=== PATIENT | female | born 1965 | race Caucasian/White ===

== ENCOUNTER → 2024-05-31 12:26 | Outpatient (BNVA) | payer OTHER, SELFPAY | PROVIDERS: Family Provider Electrodiagnostic Medicine; PCP Electrodiagnostic Medicine; Visit Provider Internal Medicine Cardiovascular Disease | DX: R07.9 Chest pain, unspecified (principal) | CPT/HCPCS: 93005 ==

== ENCOUNTER 2024-06-12 11:07 | Outpatient (CLI) | payer OTHER, SELFPAY ==
--- NOTE | 2024-06-12 11:30 | USCV_ITS ---
Jazmin Bowie Age: 59 Gender: F : 1965 Exam Date: 06/12/2024 11:27 Ordering Phys: Fernando Kauffman MD ([email or web address]) Technologist: NICKO [place]am Location[place] [facility] [place] Indication: bruit Risk Factors: Previous Vascular Surgery: Right Brachial BP: / Left Brachial BP: / Right Left Velocity (cm/s) Spectral Plaque Velocity (cm/s) Spectral Plaque Syst/Diast Broadening Syst/Diast Broadening 84.10/ 28.40 Prox CCA 73.30 / 24.90 85.40/ 28.40 Mid CCA 103.60/ 36.40 90.40/ 34.80 Distal CCA 112.00/ 38.60 73.40/ 25.70 Prox ICA 141.10/ 35.60 49.80/ 19.70 Mid ICA 147.80/ 51.00 50.70/ 17.30 Distal ICA 85.60 / 30.00 143.80 ECA 150.00 0.80 ICA/CCA 1.30 Antegrade Vertebral Antegrade 31.00/ 11.60 cm/s 26.50/ 6.60 cm/s Tri Subclavian Tri 93.10 77.50 CONCLUSIONS Right ICA stenosis <50%. Mild atheromatous plaque right carotid bulb/ICA. Left ICA stenosis 50-69%. Moderate atheromatous plaque left carotid bulb/ICA. Normal antegrade Doppler flow noted in the right vertebral artery. Normal antegrade Doppler flow noted in the left vertebral artery. Ministerio Turner MD (Electronically Signed) Final Date: 12 June 2024 18:08 S
== END 2024-06-12 11:08 | disposition home or self-care (01) ==
LOC: RAD 11:08
PROVIDERS: PCP Family Medicine; Visit Provider Internal Medicine Cardiovascular Disease
DX: R09.89 Other specified symptoms and signs involving the circulatory and respiratory systems (principal); I65.23 Occlusion and stenosis of bilateral carotid arteries
CPT/HCPCS: 93880

== ENCOUNTER 2024-06-13 09:10 | Outpatient (CLI) | payer OTHER, SELFPAY ==
[2024-06-13 09:24] VITALS: BMI 24.7
--- NOTE | 2024-06-13 09:27 | NMCV_ITS ---
NM ann perf SPECT r/s* [id number] Jazmin Bowie Age: 59 Gender: F : 1965 Exam Date: 06/13/2024 10:28 Ordering Phys: Fernando Kauffman MD ([email or web address]) Technologist: DAYA Charles Exam Location: [facility] [place] Indications: cp STRESS TEST Please see separate stress test report in [facility] for full findings IMAGE PROTOCOL Rest/Stress 1 Exercise Day Radiopharmaceutical Dose (mCi) Administration Site Administered by Rest: Tc-99m 11 IV DAYA Shankar Sestamicarter Stress:Tc-99m 32.8 IV DAYA Charles Sestamicarter Rest: 13-Jun-2024 60 Discovery 630 Stress: 13-Jun-2024 15 Discovery 630 Radiopharmaceutical was injected at 87 % maximum heart rate. Images obtained in supine and prone position. SPECT RESULTS Technical Quality: Good Raw Data Analysis: Normal Image Corrections: No attenuation or motion correction applied Summed Stress Score: 0 Summed Rest Score: 2 Summed Difference Score: 0 PERFUSION FINDINGS SPECT images demonstrate homogeneous tracer distribution throughout the myocardium. FUNCTIONAL RESULTS (calculated via Gated SPECT) Stress Image LV EF (%): 80 Stress EDV (mL):59 TID: 0.86 Stress ESV (mL):12 FUNCTIONAL FINDINGS: There is normal left ventricular systolic function. IMPRESSIONS 1. Normal myocardial perfusion imaging with no evidence of ischemia. 2. LV systolic function is normal Curt Mcmahon MD (Electronically Signed) Final Date: 15 June 2024 16:46 S
--- NOTE | 2024-06-13 09:27 | ECG_ITS ---
[facility]: 2024-[facility]13 Pat Name: Jazmin Bowie Department: Room: Gender: Female Rn Shift Mgr: : 1965 Requested By: Fernando Kauffman Order Number: [id number] Reading MD: FERNANDO KAUFFMAN Interpretive Statements Lung unchanged pre/post procedure; Intraprocedure shortess of breath; Symptoms resoled by discharge EXERCISE DATA: The patient was exercised by Raymond protocol. Baseline heart rate was 62 beats per minute. Baseline blood pressure was 159/89 millimeters of mercury. Target heart rate was 160 beats per minute. Maximum heart rate achieved was 140 which was 91% of the target heart rate. Maximum blood pressure was 202/109 millimeters of mercury. Total exercise time was 5 minutes 1 second maximum METs achieved was 7.2 maximum VO2 was 25.2 the reason for ending the test was [completion of the protocol]. The patient complained of shortness of breath during the stress test, which then resolved at the end of the test. ELECTROCARDIOGRAM: BASELINE: Showed sinus rhythm, normal axis, no significant ST-T changes at the baseline noted. [ EXERCISE: At the peak exercise level, No significant ST-T changes suggestive of ischemia noted. RECOVERY: During the recovery period, heart rate dropped appropriately. No significant ST-T changes in the recovery suggestive of ischemia noted. [] CONCLUSION: 1. Exercise capacity poor 2. Heart rate response was tachycardic 3. Blood pressure response was hypertensive 4. Symptoms not suggestive of ischemia. 5. Electrocardiogram portion of the stress test was not suggestive of ischemia. 6. Please note that due to underachievement 7 METS and poor exercise capacity specificity and sensitivity of the EKG portion of the stress test will be low Electronically Signed On 06-19-2024 21:49:57 [employer] by FERNANDO KAUFFMAN [email or web address]
[2024-06-13 11:26] VITALS: BP 168/65; PULSE 88
== END 2024-06-13 09:11 | disposition home or self-care (01) ==
LOC: CDL 09:11
PROVIDERS: PCP Family Medicine; Visit Provider Internal Medicine Cardiovascular Disease
DX: R07.9 Chest pain, unspecified (principal); R06.02 Shortness of breath; R94.39 Abnormal result of other cardiovascular function study
CPT/HCPCS: 36415; 78452; 93017; A9500